=== PATIENT | female | born 1980 | race African-American/Black ===

== ENCOUNTER 2016-10-07 22:50 | Emergency (ER) | payer OTHER ==
[~2016-10-07] VITALS: Ht 149.9 cm; Wt 44.5 kg
[~2016-10-07 22:50] MED LIST: BENZONATATE100 MG; CATAPRES-TTS 20.2 MG TOP; CELEXA10 MG PO; CLEOCIN HCL300 MG PO; COLACE 100 MG100 MG PO; COMPAZINE; DIALYVITE 800-0.8 MG; ERYPED 400400 MG/5 M PO; ERYTHROMYCIN E3.5 G3 OPHTHALMIC; ERYTHROMYCIN250 M1 PO; FELODIPINE ER10 MG PO; FLAGYL500 MG PO; FUROSEMIDE 40 M40 M1; HYDRALAZINE 2525 M1 PO; HYDROCHLOROTHIA25 M2 PO; KEFLEX500 MG PO; LANTUS SQ; MIRALAX17 GM PO; MODERIBA PO; NEXIUM40 MG PO; NORCO 5-325 TA1 EACH PO; NORVASC10 MG PO; NOVOLOG100 UNIT/1; NOVOLOG100 UNIT/1 SUBQ; PEPCID20 MG PO; PHENERGAN 25 MG25 M1 PO; PHOSLO667 MG PO; PRILOSEC40 MG PO; PROTONIX40 M1 PO; TRAMADOL 50 MG50 MG PO; TRANDATE 200 M200 M1 PO; TRANSDERM-SCO1 PATC1 TD; TYLENOL325 MG PO; VICODIN 5-5001 EACH PO; VIEKIRA PAK1 EACH PO; ZOCOR 10 MG TAB10 MG PO; ZOFRAN ODT8 MG PO; ZOFRAN8 MG PO
[2016-10-08 00:47] LABS: HEMOGLOBIN 11.8 gm/dL (12.0-15.0); MCH 29.9 pg (26.0-34.0); MCHC 32.8 g/dL (28.0-37.0); MCV 91.1 fL (80.0-100.0); PLATELET COUNT 148 thou/uL (150-400); RBC 3.96 mil/uL (4.20-5.00); RDW 15.8 % (10.5-14.5)
[2016-10-08 00:55] LABS: CALCIUM 10.5 mg/dL (8.5-10.1); CREATININE 14.5 mg/dL (0.6-1.0); MANUAL DIFF YES; POTASSIUM 4.4 mmol/L (3.5-5.1)
[2016-10-08 01:01] LABS: ALBUMIN 4.1 g/dL (3.4-5.0); TOTAL BILIRUBIN 0.6 mg/dL (<0.1-1.0); TOTAL PROTEIN 8.7 g/dL (6.4-8.2)
[2016-10-08 01:18] LABS: ABSOLUTE NEUTROPHILS 4.3 thou/uL (1.4-8.2); TOTAL CELL COUNT 100
[2016-10-08 01:20] LABS: LARGE PLATELETS SEVERAL
[2016-10-08] MEDS ORDERED: ZOFRAN ODT8 MG PO (04:12)
[2016-10-08] MEDS ORDERED: NORCO 5-325 TA1 EACH PO (04:12)
[2016-10-08 05:27] VITALS: BP 179/103
== END 2016-10-08 04:15 | disposition home or self-care (01) ==
LOC: ER 22:50
PROVIDERS: Emergency Medicine
DX: E10.43 Type 1 diabetes mellitus with diabetic autonomic (poly)neuropathy (principal); K31.84 Gastroparesis; I12.0 Hypertensive chronic kidney disease with stage 5 chronic kidney disease or end stage renal disease; E10.22 Type 1 diabetes mellitus with diabetic chronic kidney disease; N18.6 End stage renal disease; Z99.2 Dependence on renal dialysis; E44.1 Mild protein-calorie malnutrition; Z79.4 Long term (current) use of insulin

== ENCOUNTER 2016-10-13 21:43 | Emergency (ER) | payer OTHER ==
[~2016-10-13] VITALS: Ht 149.9 cm; Wt 44.5 kg
[2016-10-14] VITALS: BP 209/107
== END 2016-10-14 00:21 | disposition home or self-care (01) ==
LOC: ER 21:43
DX: L76.22 Postprocedural hemorrhage of skin and subcutaneous tissue following other procedure (principal); I12.0 Hypertensive chronic kidney disease with stage 5 chronic kidney disease or end stage renal disease; E11.22 Type 2 diabetes mellitus with diabetic chronic kidney disease; N18.6 End stage renal disease; Z99.2 Dependence on renal dialysis; Z90.49 Acquired absence of other specified parts of digestive tract; Z79.4 Long term (current) use of insulin; Z88.5 Allergy status to narcotic agent; Z88.8 Allergy status to other drugs, medicaments and biological substances

== ENCOUNTER 2017-07-19 12:04 | Emergency (ER) | payer OTHER ==
[~2017-07-19] VITALS: Ht 149.9 cm; Wt 49.9 kg
[2017-07-19 14:18] LABS: ABSOLUTE NEUTROPHILS 5.3 thou/uL (1.4-8.2); BASOPHILS 0.4 % (0.0-2.0); EOSINOPHILS 1.3 % (0.0-3.0); HEMATOCRIT 43.9 % (37.0-47.0); HEMOGLOBIN 14.5 gm/dL (12.0-15.0); LYMPHOCYTES 6.3 % (24.0-44.0); MCH 30.6 pg (26.0-34.0); MCV 92.6 fL (80.0-100.0); MONOCYTES 4.3 % (1.0-8.0); PLATELET COUNT 152 thou/uL (150-400); POLYS 87.7 % (36.0-66.0); RBC 4.74 mil/uL (4.20-5.00); RDW 16.3 % (10.5-14.5); WBC 6.1 thou/uL (4.0-11.0)
[2017-07-19 14:23] LABS: CALCIUM 10.1 mg/dL (8.5-10.1); CREATININE 7.4 mg/dL (0.6-1.0); POTASSIUM 4.2 mmol/L (3.5-5.1)
[2017-07-19 14:30] LABS: ALBUMIN 4.3 g/dL (3.4-5.0); TOTAL BILIRUBIN 0.7 mg/dL (<0.1-1.0)
[2017-07-19 15:35] LABS: URINE BILIRUBIN NEGATIVE (Negative); URINE BLOOD TRACE (Negative); URINE CLARITY SL CLOUDY; URINE COLOR YELLOW; URINE GLUCOSE-RANDOM* 1+ (Negative); URINE KETONES NEGATIVE (Negative); URINE NITRITE-REFLEX NEGATIVE (Negative); URINE PROTEIN (DIPSTICK) 2+ (Negative); URINE SPECIFIC GRAVITY 1.015 (1.005-1.035); URINE UROBILINOGEN 0.2 E.U./dl (0.2-1.0)
[2017-07-19 15:39] LABS: URINE LEUKOCYTES-REFLEX 1+ (Negative)
[2017-07-19 15:54] LABS: CASTS None Seen /LPF (None Seen); CRYSTALS None Seen /LPF (None Seen); SQUAMOUS 4-10 Moderate /LPF (0-3); URINE RBC 0-2 Rare /HPF (0-2); URINE WBC-REFLEX 0-5 Rare /HPF (0-5)
[2017-07-19 15:55] LABS: BACTERIA-REFLEX 1-9 Few /HPF (None Seen)
[2017-07-19] MEDS ORDERED: ZOFRAN ODT4 MG PO (16:03)
[2017-07-19 16:30] VITALS: BP 160/96
== END 2017-07-19 16:30 | disposition home or self-care (01) ==
LOC: ER 12:04
PROVIDERS: Physician Assistant
DX: E10.22 Type 1 diabetes mellitus with diabetic chronic kidney disease (principal); I12.0 Hypertensive chronic kidney disease with stage 5 chronic kidney disease or end stage renal disease; N18.6 End stage renal disease; K59.00 Constipation, unspecified; K31.84 Gastroparesis; Z99.2 Dependence on renal dialysis; Z86.2 Personal history of diseases of the blood and blood-forming organs and certain disorders involving the immune mechanism; Z90.49 Acquired absence of other specified parts of digestive tract; Z88.8 Allergy status to other drugs, medicaments and biological substances; Z88.5 Allergy status to narcotic agent; Z88.6 Allergy status to analgesic agent

== ENCOUNTER → 2017-12-08 | Emergency (ER) | payer OTHER ==
[~2017-12-08] VITALS: Ht 149.9 cm; Wt 47.2 kg
[~2017-12-08] MED LIST changes: +KEFLEX500 M1 PO; +ZOFRAN ODT4 MG PO
[2017-12-08 12:16] VITALS: BP 198/109
[2017-12-08 12:36] LABS: URINE BILIRUBIN NEGATIVE (Negative); URINE BLOOD TRACE (Negative); URINE CLARITY CLEAR; URINE COLOR YELLOW; URINE GLUCOSE-RANDOM* NEGATIVE (Negative); URINE KETONES NEGATIVE (Negative); URINE LEUKOCYTES-REFLEX 1+ (Negative); URINE NITRITE-REFLEX NEGATIVE (Negative); URINE PROTEIN (DIPSTICK) 2+ (Negative); URINE UROBILINOGEN 0.2 E.U./dl (0.2-1.0)
[2017-12-08 12:50] LABS: BACTERIA-REFLEX 1-9 Few /HPF (None Seen); CASTS None Seen /LPF (None Seen); CRYSTALS None Seen /LPF (None Seen); SQUAMOUS >10 Many /LPF (0-3); URINE RBC 0-2 Rare /HPF (0-2); URINE WBC-REFLEX 6-15 Few /HPF (0-5)
== END ==
LOC: ER 12:16
PROVIDERS: Nurse Practitioner
DX: N39.0 Urinary tract infection, site not specified (principal); E10.22 Type 1 diabetes mellitus with diabetic chronic kidney disease; I12.0 Hypertensive chronic kidney disease with stage 5 chronic kidney disease or end stage renal disease; N18.6 End stage renal disease; E10.43 Type 1 diabetes mellitus with diabetic autonomic (poly)neuropathy; Z99.2 Dependence on renal dialysis; K31.84 Gastroparesis; Z88.8 Allergy status to other drugs, medicaments and biological substances; Z88.5 Allergy status to narcotic agent; Z86.2 Personal history of diseases of the blood and blood-forming organs and certain disorders involving the immune mechanism; Z90.49 Acquired absence of other specified parts of digestive tract

== ENCOUNTER 2018-12-05 21:23 | Emergency (ER) | payer OTHER ==
[~2018-12-05] VITALS: Ht 149.9 cm; Wt 44.5 kg
[2018-12-05 22:21] LABS: ABSOLUTE NEUTROPHILS 9.4 thou/uL (1.4-8.2); BASOPHILS 0.1 % (0.0-2.0); EOSINOPHILS 1.3 % (0.0-3.0); HEMATOCRIT 34.4 % (37.0-47.0); HEMOGLOBIN 11.4 gm/dL (12.0-15.0); MCH 29.4 pg (26.0-34.0); MCHC 33.1 g/dL (28.0-37.0); MONOCYTES 0.3 % (1.0-8.0); PLATELET COUNT 142 thou/uL (150-400); POLYS 96.3 % (36.0-66.0); RBC 3.86 mil/uL (4.20-5.00); WBC 9.8 thou/uL (4.0-11.0)
[2018-12-05 22:28] LABS: CALCIUM 8.7 mg/dL (8.5-10.1); CREATININE 7.4 mg/dL (0.6-1.0); POTASSIUM 4.8 mmol/L (3.5-5.1)
[2018-12-05 22:34] LABS: TOTAL BILIRUBIN 0.6 mg/dL (<0.1-1.0); TOTAL PROTEIN 8.4 g/dL (6.4-8.2)
[2018-12-06] MEDS ORDERED: NORCO 5-325 TA1 EAC1 PO (00:12)
[2018-12-06] MEDS ORDERED: ZOFRAN ODT4 MG PO (00:12)
[2018-12-06 00:21] LABS: URINE BILIRUBIN NEGATIVE (Negative); URINE BLOOD 2+ (Negative); URINE CLARITY TURBID; URINE COLOR YELLOW; URINE GLUCOSE-RANDOM* TRACE (Negative); URINE KETONES TRACE (Negative); URINE NITRITE-REFLEX NEGATIVE (Negative); URINE PROTEIN (DIPSTICK) 3+ (Negative); URINE SPECIFIC GRAVITY 1.015 (1.005-1.035); URINE UROBILINOGEN 0.2 E.U./dl (0.2-1.0)
[2018-12-06 00:22] LABS: URINE LEUKOCYTES-REFLEX 3+ (Negative)
[2018-12-06 00:30] LABS: SQUAMOUS 0-3 Few /LPF (0-3); URINE WBC-REFLEX >25 Many /HPF (0-5); WBC CLUMPS Packed (None Seen)
[2018-12-06 00:31] LABS: BACTERIA-REFLEX >30 Many /HPF (None Seen); CASTS None Seen /LPF (None Seen); CRYSTALS None Seen /LPF (None Seen); MUCUS 0-3 Light strn/LPF (None Seen); URINE RBC >20 Many /HPF (0-2)
[2018-12-06] MEDS ORDERED: PHENERGAN 25 MG25 M1 PO (00:33)
[2018-12-06] MEDS ORDERED: CEFDINIR300 MG PO (00:38)
[2018-12-06 01:11] VITALS: BP 142/74
== END 2018-12-06 01:20 | disposition home or self-care (01) ==
LOC: ER 21:23
PROVIDERS: Emergency Medicine
DX: K52.9 Noninfective gastroenteritis and colitis, unspecified (principal); E10.22 Type 1 diabetes mellitus with diabetic chronic kidney disease; I12.0 Hypertensive chronic kidney disease with stage 5 chronic kidney disease or end stage renal disease; N18.6 End stage renal disease; Z99.2 Dependence on renal dialysis; Z86.2 Personal history of diseases of the blood and blood-forming organs and certain disorders involving the immune mechanism; Z90.49 Acquired absence of other specified parts of digestive tract; Z88.5 Allergy status to narcotic agent; Z88.8 Allergy status to other drugs, medicaments and biological substances